=== PATIENT | female | born 1965 | race African-American/Black ===

== ENCOUNTER 2019-03-04 01:39 | Emergency (ER) | payer OTHER ==
[~2019-03-04] VITALS: Ht 162.6 cm; Wt 88.1 kg
[2019-03-04 05:16] VITALS: BP 148/87
== END 2019-03-04 05:16 | disposition home or self-care (01) ==
LOC: ED 01:39
DX: H83.01 Labyrinthitis, right ear (principal)
CPT/HCPCS: J8597

== ENCOUNTER 2019-09-11 09:51 | Emergency (ER) | payer OTHER ==
[~2019-09-11] VITALS: Ht 165.1 cm; Wt 92.1 kg
[2019-09-11 10:09] VITALS: BP 155/87; Ht 165.1 cm; Wt 92.1 kg
== END 2019-09-11 11:24 | disposition home or self-care (01) ==
LOC: ED 09:51
DX: Z53.21 Procedure and treatment not carried out due to patient leaving prior to being seen by health care provider (principal)